=== PATIENT | male | born 1955 | race Caucasian/White ===

== ENCOUNTER 2018-02-19 02:11 | Emergency (ER) | payer OTHER ==
[~2018-02-19] VITALS: Ht 182.9 cm; Wt 108.0 kg
[~2018-02-19 02:11] MED LIST: FOLI1POW10; MAGN1CAP2; WARF5TAB7 PO
[2018-02-19 02:19] VITALS: TEMP 36.7; Ht 182.9 cm; Wt 108.0 kg
[2018-02-19] MEDS ORDERED: PROPARACAINE HCL 0.5% OP SOLN 15 ML BTL ONE (02:25)
[2018-02-19] MEDS ORDERED: ASCO10003 PO (02:51)
[2018-02-19] MEDS ORDERED: CIPROFLOXACIN HCL 0.3% OP SOLN 2.5 ML BTL OP STA (03:04)
[2018-02-19] MEDS ORDERED: DIPHTHERIA/TETANUS/PERTUSSIS 0.5 ML SYR/VIAL IM. ONE (03:15)
--- NOTE | 2018-02-19 03:16 | EMERGENCY ROOM VISIT NOTE ---
ED Visit Note First contact with patient: 02:52 CHIEF COMPLAINT: Foreign body of the eye HISTORY OF PRESENT ILLNESS: This 62 yo patient presents to the emergency department complaining of pain and foreign body sensation in the left eye. Patient believes he got sawdust in his eye.. There has been a constant moderate pain and irritation, redness and tearing in the eye. The vision has not been decreased over all. The patient does not wear contacts. The patient rates the pain as 5/10. The patient has had previous injuries to this eye. Tetanus shot is not up to date. REVIEW OF SYSTEMS: A 6 system review of systems was completed with positives and pertinent negatives listed in the HPI. ALLERGIES: Clarithromycin MEDICATIONS: None PMH: DVT SOCIAL HISTORY: No drug use PHYSICAL EXAM: Vital Signs: Reviewed Nurse's notes, vital signs stable. Visual acuity 20/40 both eyes. GENERAL: This is a pleasant male, in no acute distress , but who is uncomfortable from the eye problem. Well-developed well- nourished. EYES: The pupils are equal round and reactive to light and accommodation. EOMs are full and without tenderness. There is clear discharge from the left eye which is injected. There is visible on the cornea. There is no foreign body visible under the eyelid after lid eversion. Small piece of white material foreign body was seen embedded in the cornea under slit lamp exam. The cornea was clear and no hyphema was seen. Fluorescein uptake was observed with ultraviolet light significant for a corneal abrasion only around the previous location of the foreign body. EMERGENCY DEPARTMENT COURSE: I examined the patient. Alcaine 2 drops were placed in the patient's left eye. A slit lamp exam was performed as above. The foreign body was removed using a Q-tip. Ciloxan two drops was placed in the patient's left eye. Patient was advised to follow-up with ophthalmology in a few days here in the ER sooner for eye pain, vision problems, worsening signs or symptoms or as needed. He was advised to always wear eye protection when working. Tetanus shot was given. This was outdated. The patient was discharged home in good condition. Differential diagnosis includes corneal abrasion, foreign body, iritis, conjunctivitis, and other etiologies were considered. DIAGNOSIS: Foreign body with subsequent corneal abrasion of the left eye DISCHARGE INSTRUCTIONS AND TREATMENT: as above Current/Historical Medications Scheduled Ascorbic Acid (Vitamin C), 1,000 MG PO QAM Allergies Coded Allergies: Clarithromycin (Verified Allergy, Severe, HIVES, 02/19/18) Vital Signs Date Time Temp Pulse Resp B/P (MAP) Pulse Ox O2 Delivery O2 Flow Rate FiO2 02/19/18 02:19 36.7 65 18 124/82 95 Room Air Medications Administered Medications (Trade) Dose Ordered Sig/Radha Route Start Time Stop Time Status Last Admin Dose Admin Ciprofloxacin HCl (Ciprofloxacin 0.3% Op Soln) 1 drops NOW STAT OP 02/19/18 03:04 02/19/18 03:05 DC 02/19/18 03:09 1 DROPS Diphtheria/ Pertussis/Tetanus Vacc (Adacel Inj) 0.5 ml ONCE ONCE IM. 02/19/18 03:15 02/19/18 03:16 02/19/18 03:10 0.5 ML Departure Information Impression Primary Impression: Foreign body in eyeball, left Additional Impression: Corneal abrasion, left Dispostion Home / Self-Care Condition GOOD Referrals Scot Souza DHerberOHerber Forms WORK / SCHOOL INSTRUCTIONS, HOME CARE DOCUMENTATION FORM, Days off work : 2 Work Instructions, IMPORTANT VISIT INFORMATION Patient Instructions Corneal Injury, [facility], ED Foreign Body Cornea Additional Instructions Use Ciloxan two drops in left eye every two hours while awake for two days; then two drops every four hours while awake for three days. Use Ibuprofen 400 mg or Tylenol 1000 mg every 6 hours as needed for pain ( Maximum 3000 mg Tylenol in 24 hr period). If you wear contacts, no contacts for 1 week. Return to the ED or see your family doctor or eye doctor in 36-48 hours for a recheck. Return to the ED for increasing pain or changes in vision. Problem Qualifiers
[2018-02-19 03:19] VITALS: BP 135/81; PULSE 68; O2SAT 95
== END 2018-02-19 03:19 | disposition home or self-care (01) ==
LOC: C.EDB 02:12 → C.EDA 03:19
DX: T15.02XA Foreign body in cornea, left eye, initial encounter (principal); X58.XXXA Exposure to other specified factors, initial encounter; Z88.1 Allergy status to other antibiotic agents; Z86.718 Personal history of other venous thrombosis and embolism; Z23 Encounter for immunization